=== PATIENT | male | born 1995 | race Caucasian/White ===

== ENCOUNTER 2016-11-11 10:33 | Emergency (ER) | payer BC ==
[2016-11-11 10:38] VITALS: BP 111/73; PULSE 71; RESP 16; O2SAT 96
[2016-11-11] MEDS ORDERED: KETOROLAC 30 MG/1 ML SDV IM ONE (11:13)
--- NOTE | 2016-11-11 11:24 | EDPHY ---
H & P Stated Complaint: L sided jaw pain Time Seen by Provider: 11/11/16 11:20 HPI/ROS: HPI: This is a 21-year-old male who presents with Chief Complaint: Left jaw pain Location: chin/left side of jaw Quality: Injury Duration: 1 hour prior to arrival Signs and Symptoms: No difficulty speaking, no difficulty swallowing, no bleeding in the mouth, + pain at left side of chin, no epistaxis, no vision changes, no headache, no loss of consciousness, no neck pain, no ear pain Timing: Sudden, worse with opening mouth Severity: Moderate Context: This is a generally healthy 21-year-old male who admits to drinking a console amount of alcohol last night; woke up this morning and was trying to impress his girlfriend. He picked up an 18 lb this in ball, put it over his head and dropped onto the floor. The medicine ball ricocheted up and hit left side of his chin and jaw with immediate pain. Feels like his "molars are numb. " Modifying Factors: Did not apply ice or take any [id number] medications for pain Comment: ROS: Constitutional: No fever, no chills, no weight loss Eyes: No blurred vision Respiratory: No shortness of breath, no cough Cardiovascular: No chest pain Gastrointestinal: No nausea, no vomiting no diarrhea Genitourinary: No dysuria Extremities: No myalgias Neurologic: No weakness, no numbness Skin: No rashes Hematologic: No bruising, no bleeding MEDICAL/SURGICAL HISTORY: Generally healthy. Denies any surgical history. Source: Patient Exam Limitations: No limitations - Personal History Current Tetanus/Diphtheria Vaccine: Yes Current Tetanus Diphtheria and Acellular Pertussis (TDAP): Yes - Medical/Surgical History Hx Asthma: No Hx Chronic Respiratory Disease: No Hx Diabetes: No Hx Cardiac Disease: No Hx Renal Disease: No Hx Cirrhosis: No Hx Alcoholism: No Hx HIV/AIDS: No Hx Splenectomy or Spleen Trauma: No Other PMH: asthma - Social History Smoking Status: Former smoker - Physical Exam Exam: CONSTITUTIONAL: Left knee making his jokes with his girlfriend at bedside young adult white male, awake and alert, no obvious distress HEENT: Atraumatic and normocephalic, PERRL, EOMI. Tympanic membranes clear. No TM rupture. Oropharynx clear, no exudate and moist pink mucosa. Airway patent. No malocclusion. Mild tenderness in the left TMJ joint space. Able to open up mouth enough for me to place 2-3 fingerwidths inside. Moderate tenderness to palpation on the left side of the chin; no deformity or crepitus appreciated. No lymphadenopathy. No meningismus. Cardiovascular: Normal S1/S2, regular rate, regular rhythm, without murmur rub or gallop. PULMONARY/CHEST: Symmetrical and nontender. Clear to auscultation bilaterally Good air movement. No accessory muscle usage. ABDOMEN: Soft, nondistended, nontender, no rebound, no guarding, no peritoneal signs, no masses or organomegaly. No CVAT. EXTREMITIES: 2/2 pulses, no deformities, no clubbing, no cyanosis or edema. NEUROLOGICAL: no focal neuro deficits. GCS 15. Speech clear SKIN: Warm and dry, no erythema. no rash. Good capillary refill. Constitutional: Initial Vital Signs Temperature (C) 36.6 C 11/11/16 10:36 Heart Rate 71 11/11/16 10:36 Respiratory Rate 16 11/11/16 10:36 Blood Pressure 111/73 11/11/16 10:36 O2 Sat (%) 96 11/11/16 10:36 O2 Delivery Mode Room Air Allergies/Adverse Reactions: Penicillins Allergy (Verified 11/11/16 10:38) Home Medications: Medication Instructions Recorded Cyclobenzaprine [Flexeril 10 MG 10 mg PO TID PRN #12 tab 11/11/16 (*)] Medical Decision Making ED Course/Re-evaluation: CT maxillofacial scan and a medications ordered Given 60 mg of IM Toradol with adequate pain relief No signs of neurovascular compromise/malocclusion/fracture/dislocation Passed p.o. trial without difficulty 1200: Called by radiologist and CT maxillofacial scan does not show any fracture and TMJ joint is normal. Advised to continue supportive care, rice therapy Differential Diagnosis: Differential diagnosis includes but is not limited to TMJ strain; mandible fracture; LeFort fracture; contusion; dental injury. - Data Points Medications Given: Discontinued Medications Ketorolac Tromethamine (Toradol) 60 mg IM EDNOW ONE Stop: 11/11/16 11:14 Last Admin: 11/11/16 11:41 Dose: 60 mg Departure - Departure Disposition: Home, Routine, Self-Care Clinical Impression: Strain of jaw Condition: Good Instructions: Temporomandibular Disorder (ED) Additional Instructions: Your CT scan today does not show any fracture, dislocation, or TMJ joint dysfunction. Eat soft foods until pain resolved. Take 600-800 mg of ibuprofen every 6-8 hours with food as needed for pain. Use muscle relaxer sparingly as needed for spasm over the next 24-48 hours. Referrals: [facility] [Other] - As per Instructions Prescriptions: Cyclobenzaprine [Flexeril 10 MG (*)] 10 mg PO TID PRN #12 tab PRN Reason: Spasms
[2016-11-11 12:43] VITALS: TEMP 98.6
== END 2016-11-11 12:43 | disposition home or self-care (01) ==
DX: S03.42XA Sprain of jaw, left side, initial encounter (principal); J45.909 Unspecified asthma, uncomplicated; Z87.891 Personal history of nicotine dependence; W21.00XA Struck by hit or thrown ball, unspecified type, initial encounter
CPT/HCPCS: J1885

== ENCOUNTER 2017-04-05 13:00 | Emergency (ER) | payer BC ==
[2017-04-05 13:20] VITALS: TEMP 98.1
--- NOTE | 2017-04-05 13:26 | EDPHY ---
H & P Time Seen by Provider: 04/05/17 13:15 HPI/ROS: Chief complaint. Mental health evaluation HPI. 21-year-old male presents emergency department on M1 hold. He was brought in by the police. Apparently the patient has not been answering phone calls from his parents and the family became concerned and called 911. The patient denies suicide ideation or homicide ideation. He says the has some issues with his parents and that he was wanting to get their attention. He also has not sick. He has not tried to harm himself. Normally healthy. He is without complaints. ROS Constitutional. no fever/chills, no weakness Eyes. no problems with vision ENT. no sore throat, no nasal drainage Cardiovascular. no chest pain Respiratory. no shortness of breath, no cough Abdominal. no abdominal pain, no nausea/vomiting, no diarrhea . no problems urinating MS. no calf pain/swelling, no neck/back pain, no joint pain Skin. no rash Lymph. no swollen glands Neuro. no headache, no dizziness, no difficulty walking or with speech Past Medical/Surgical History: Asthma Social History: Single, nonsmoker, no alcohol Smoking Status: Former smoker Physical Exam: General Appearance: Alert well-developed male no distress vital signs are stable Eyes: Pupils equal and round no pallor or injection. ENT, Mouth: Mucous membranes are moist. Respiratory: There are no retractions, lungs are clear to auscultation. Cardiovascular: Regular rate and rhythm. Gastrointestinal: Abdomen is soft and nontender, no masses, bowel sounds normal. Neurological: Awake and alert, sensory and motor exams grossly normal. Skin: Warm and dry, no rashes. Musculoskeletal: Neck is supple nontender. Extremities symmetrical, full range of motion. Psychiatric: Patient is oriented X 3, there is no agitation. Constitutional: Initial Vital Signs Temperature (C) 36.7 C 04/05/17 13:17 Heart Rate 75 04/05/17 13:17 Respiratory Rate 16 04/05/17 13:17 Blood Pressure 110/87 H 04/05/17 13:17 O2 Sat (%) 98 04/05/17 13:17 O2 Delivery Mode Room Air Allergies/Adverse Reactions: Penicillins Allergy (Intermediate, Verified 04/05/17 13:19) Rash Home Medications: Medication Instructions Recorded Clonazepam 04/05/17 Medical Decision Making ED Course/Re-evaluation: 3:10 p.m.. Labs are reviewed. Patient is stable. He is cleared medically for mental health evaluation. Re-evaluation 4:00 p.m.. Patient has been evaluated by mental health. They feel he is appropriate for outpatient therapy. They discussed with on-call psychiatrist who agrees. Patient has no complaints and is comfortable being discharged Differential Diagnosis: I considered suicide and homicide ideation. I considered drug ingestion as well as withdrawal. - Data Points Laboratory Results: Laboratory Results 04/05/17 13:20 04/05/17 13:20 04/05/17 04/05/17 04/05/17 13:50 13:20 13:20 WBC 5.17 10^3/uL 10^3/uL (3.80-9.50) RBC 5.39 10^6/uL 10^6/uL (4.40-6.38) Hgb 17.4 g/dL g/dL (13.7-17.5) Hct 48.6 % % (40.0-51.0) MCV 90.2 fL fL (81.5-99.8) MCH 32.3 pg pg (27.9-34.1) MCHC 35.8 g/dL g/dL (32.4-36.7) RDW 12.1 % % (11.5-15.2) Plt Count 215 10^3/uL 10^3/uL (150-400) MPV 9.7 fL fL (8.7-11.7) Neut % (Auto) 54.9 % % (39.3-74.2) Lymph % (Auto) 38.1 % % (15.0-45.0) [place] % (Auto) 5.2 % % (4.5-13.0) Eos % (Auto) 1.0 % % (0.6-7.6) Baso % (Auto) 0.6 % % (0.3-1.7) Nucleat RBC Rel Count 0.0 % % (0.0-0.2) Absolute Neuts (auto) 2.84 10^3/uL 10^3/uL (1.70-6.50) Absolute Lymphs (auto) 1.97 10^3/uL 10^3/uL (1.00-3.00) Absolute Monos (auto) 0.27 10^3/uL L 10^3/uL (0.30-0.80) Absolute Eos (auto) 0.05 10^3/uL 10^3/uL (0.03-0.40) Absolute Basos (auto) 0.03 10^3/uL 10^3/uL (0.02-0.10) Absolute Nucleated RBC 0.00 10^3/uL 10^3/uL (0-0.01) Immature Gran % 0.2 % % (0.0-1.1) Immature Gran # 0.01 10^3/uL 10^3/uL (0.00-0.10) Sodium 145 mEq/L mEq/L (135-145) Potassium 4.5 mEq/L mEq/L (3.5-5.2) Chloride 103 mEq/L mEq/L (97-110) Carbon Dioxide 28 mEq/l mEq/l (22-31) Anion Gap 14 mEq/L mEq/L (8-16) BUN 19 mg/dL mg/dL (7-23) Creatinine 0.9 mg/dL mg/dL (0.7-1.3) Estimated GFR > 60 Glucose 91 mg/dL mg/dL (70-100) Calcium 10.3 mg/dL mg/dL (8.5-10.4) Urine Opiates Screen NEGATIVE (NEGATIVE) Acetaminophen < 10 mcg/mL L mcg/mL (10-30) Urine Barbiturates NEGATIVE (NEGATIVE) Ur Phencyclidine Scrn NEGATIVE (NEGATIVE) Ur Amphetamine Screen NEGATIVE (NEGATIVE) U Benzodiazepines Scrn NEGATIVE (NEGATIVE) Urine Cocaine Screen NEGATIVE (NEGATIVE) U Marijuana (THC) Screen NON-NEGATIVE H (NEGATIVE) Ethyl Alcohol < 10 mg/dL mg/dL (0-10) Departure - Departure Disposition: Home, Routine, Self-Care Clinical Impression: Family conflict Condition: Good Instructions: Suicide Prevention for Adults (ED) Additional Instructions: Return for thoughts of harming herself or others. Follow up with mental health as they have recommended. Referrals: NONE *PRIMARY CARE P,. [Primary Care Provider] - As per Instructions
[2017-04-05 13:34] LABS: PLATELET COUNT 215 10^3/uL (150-400)
[2017-04-05 17:02] VITALS: BP 106/61; PULSE 80; RESP 18; O2SAT 100
== END 2017-04-05 17:01 | disposition home or self-care (01) ==
LOC: EEVIPCON 13:00
DX: Z63.8 Other specified problems related to primary support group (principal); J45.909 Unspecified asthma, uncomplicated; Z87.891 Personal history of nicotine dependence
CPT/HCPCS: 80305; G0480